=== PATIENT | male | born 1965 | race Caucasian/White ===

== ENCOUNTER → 2017-10-13 | Outpatient (CLI) | payer MEDICAID ==
--- NOTE | 2017-10-13 14:04 | EST ---
EXERCISE STRESS DATE OF SERVICE: 10/13/2017 AGE: 52 SEX: Male HT: 5'10" WT: 231 pounds PROTOCOL: Corey STAGE: III DURATION OF EXERCISE: 8 minutes 55 seconds HEART RATE REST: 76 BLOOD PRESSURE REST: 134/90 MAXIMUM HEART RATE ACHIEVED: 144 MAXIMUM BLOOD PRESSURE: 167/113 85% MPHR: 141 100% MPHR: 166 METS: 10.3 INDICATIONS: Abnormal EKG CLINICAL INFORMATION: History of abnormal ECG. This is an exercise Cardiolite stress test. Baseline heart rate 76 beats per minute. Baseline blood pressure 134/90 mmHg. Baseline 12-lead ECG shows normal sinus rhythm with normal cardiac intervals. Patient exercised on a Corey protocol for 8 minutes 55 seconds achieving a peak heart rate of 144 beats per minute. Normal blood pressure response to exercise. There was no ECG evidence for ischemia. No arrhythmias were noted. Nuclear portion of the stress test will be reported separately. MMODL / IJN: [id number] /
== END | disposition home or self-care (01) ==
LOC: RADNMMAIN 09:38
PROVIDERS: ATTEND Family Medicine
DX: R94.31 Abnormal electrocardiogram [ECG] [EKG] (principal)
CPT/HCPCS: 93017